=== PATIENT | female | born 1990 | race Caucasian/White ===

== ENCOUNTER 2018-12-21 11:52 | Emergency (ER) | payer OTHER ==
[2018-12-21 12:05] VITALS: BP 144/80; PULSE 68; TEMP 98; BMI 37.3
--- NOTE | 2018-12-21 12:33 | PDOC ---
History of Present Illness - General Chief Complaint: Vaginal Bleeding Stated Complaint: 8WKS/ BLEEDING WITH PAIN Time Seen by Provider: 12/21/18 12:19 History Source: Patient Exam Limitations: No Limitations - History of Present Illness Initial Comments: 12/21/18 12:34 CHIEF COMPLAINT: Vaginal bleeding HISTORY OF PRESENT ILLNESS: This is an otherwise healthy 28-year-old , LMP 4 /17 (15 wks) who presents with light vaginal bleeding, abdominal pain, back pain , and dysuria today. She reports that at her last ultrasound in November, she was told that "the baby is not growing well" and that she should return in one month for a repeat study. She had her follow up scan today, but does not have the results. Ob: Courtney Khan ([address]) Vital signs on arrival are notable for BP 144/80. REVIEW OF SYSTEMS: GENERAL/CONSTITUTIONAL: No fever or chills. No weakness. No weight change. CARDIOVASCULAR: No chest pain or palpitations. RESPIRATORY: No cough, wheezing, or shortness of breath. GASTROINTESTINAL: No nausea, vomiting, diarrhea or constipation. GENITOURINARY: See HPI. MUSCULOSKELETAL: No joint or muscle swelling or pain. No neck or back pain. SKIN: No rash or easy bruising. NEUROLOGIC: No headache, vertigo, loss of consciousness, or loss of sensation. HEMATOLOGIC/LYMPHATIC: No anemia, easy bleeding, or history of blood clots. ALLERGIC/IMMUNOLOGIC: No hives or skin allergy. No latex allergy. PHYSICAL EXAM: GENERAL: The patient is awake, alert, and fully oriented, in no acute distress. ENT: Pupils equal, round and reactive to light, extraocular movements intact, sclera anicteric, conjunctiva clear. Neck supple. LUNGS: Clear to auscultation bilaterally. Normal excursion. No respiratory distress or use of accessory muscles. CV: RRR, S1/S2, no MRG. Cap refill < 2 sec. ABDOMEN: Soft, mild diffuse tenderness without peritoneal signs, bilateral CVA tenderness, gravid uterus palpable at umbilicus. EXTREMITIES: Normal range of motion, no edema. NEUROLOGICAL: Normal speech, normal gait. CN II-XII grossly intact. PSYCH: Normal mood, normal affect. SKIN: Warm, dry, normal turgor, no rashes or lesions noted. Past History - Past Medical History Allergies/Adverse Reactions: Allergies Allergy/AdvReac Type Severity Reaction Status Date / Time No Known Allergies Allergy Verified 12/21/18 12:06 COPD: No - Suicide/Smoking/Psychosocial Hx Smoking History: Never smoked Hx Alcohol Use: No Drug/Substance Use Hx: No *Physical Exam - Vital Signs Last Vital Signs Temp Pulse Resp BP Pulse Ox 98.0 F 68 16 144/80 100 12/21/18 12:01 12/21/18 12:01 12/21/18 12:01 12/21/18 12:01 12/21/18 12:01 ED Treatment Course - LABORATORY CBC & Chemistry Diagram: 12/21/18 12:35 - RADIOLOGY Radiology Studies Ordered: Category Date Time Status TRANSVAGINAL ULTRASOUND US [US] Stat Ultrasound 12/21/18 12:23 Ordered Medical Decision Making - Medical Decision Making 12/21/18 12:38 A/P: 28-year-old female with vaginal bleeding, abd pain/back pain in second trimester. 1. Labs including CBC, bhcg, T&S, UA/culture 2. Ultrasound to assess well-being 3. Tylenol 650mg PO for pain 4. Re-assess/discuss with OB 12/21/18 13:54 Bhcg 3214 - lower than expected for gestational age 0812/21/18 14:19 Ultrasound reviewed and interpreted by radiology: There is a slightly deformed gestational sac measuring 8 weeks 3 days without cardiac activity, consistent with demise. Dr. Valera renovation plant supervisor for obstetrics paged. 12/21/18 15:[address] Valera - pt may follow up at [address] Monday for further evaluation. Results and plan reviewed with patient using [employer] moose hunter [id number]. Return precautions reviewed. *DC/Admit/Observation/Transfer Diagnosis at time of Disposition: demise before 20 weeks with retention of fetus - Discharge Dispostion Disposition: HOME Condition at time of disposition: Stable Decision to Admit order: No - Referrals - Patient Instructions Printed Discharge Instructions: DI for Miscarriage Additional Instructions: -Follow up at [address] on Monday (call for an appointment) -Take ibuprofen if needed for pain -Return here for heavy bleeding (more than 1 pad per hour) or any other concerning symptoms Print Language: HAITIAN - Post Discharge Activity
[2018-12-21] MEDS ORDERED: ACETAMINOPHEN 325 MG TABLET (FP) PO ONE (12:35)
[2018-12-21 12:46] LABS: BASO % 1.1 % (0-2.0); EOS % 1.3 % (0-4.5); HEMOGLOBIN 12.1 GM/dL (10.7-15.3); LYMPH % 20.1 % (8-40); MCH 28.3 pg (25.7-33.7); MCHC 33.8 g/dl (32.0-36.0); MEAN CELL VOLUME 83.8 fl (80-96); MEAN PLT VOLUME 8.8 fl (7.5-11.1); MONO % 6.8 % (3.8-10.2); NEUT % 70.7 % (42.8-82.8); PLATELET COUNT 281 K/MM3 (134-434); RBC 4.29 M/mm3 (3.60-5.2); RDW 13.9 % (11.6-15.6); WHITE BLOOD COUNT 9.4 K/mm3 (4.0-10.0)
[2018-12-21 12:53] LABS: EPI CELLS 1.2 /HPF (0-5/HPF); HYALINE CASTS 0 /lpf (0-8); PH,URINE 6.5 (5.0-8.0); URINE APPEARANCE CLEAR; URINE BILIRUBIN NEGATIVE (NEGATIVE); URINE COLOR YELLOW; URINE GLUCOSE (UA) NEGATIVE (NEGATIVE); URINE KETONE NEGATIVE (NEGATIVE); URINE LEUK ESTERASE NEGATIVE (NEGATIVE); URINE NITRITE NEGATIVE (NEGATIVE); URINE PROTEIN NEGATIVE (NEGATIVE); URINE RBC 1 /hpf (0-4); URINE UROBILINOGEN 0.2 mg/dL (0.2-1.0); URINE WBC 1 /hpf (0-5)
== END 2018-12-21 15:04 | disposition home or self-care (01) ==
LOC: JER 11:52
DX: O26.891 Other specified pregnancy related conditions, first trimester (principal); O02.1 Missed abortion; Z3A.08 8 weeks gestation of pregnancy
CPT/HCPCS: 36415; 76816-TC; 81003; 84702; 85025; 86850; 86900; 86901; 87086; 99283-25

== ENCOUNTER 2020-01-28 11:59 | Emergency (ER) | payer OTHER ==
[2020-01-28 12:03] VITALS: BP 124/73; PULSE 82; TEMP 97.7; BMI 41.0
--- NOTE | 2020-01-28 12:48 | PDOC ---
History of Present Illness <Sunita Gardner - Last Filed: 01/28/20 14:29> - General History Source: Patient Exam Limitations: No Limitations <Paola Ball - Last Filed: 01/28/20 14:41> - General Chief Complaint: Pain, Acute Stated Complaint: 16WKS/ ABD. PAIN Time Seen by Provider: 01/28/20 12:16 Past History <Sunita Gardner - Last Filed: 01/28/20 14:29> - Travel History Traveled outside of the country in the last 30 days: No Close contact w/someone who was outside of country & ill: No - Medical History COPD: No Other medical history: DENIES - Reproductive History Is Patient Now?: Yes - Immunization History Immunization Up to Date: Yes - Psycho-Social/Smoking History Smoking History: Never smoked - Substance Abuse Hx (Audit-C & DAST Scrn) How often the patient has a drink containing alcohol: Never Score: In Men: 4 or > Positive; In Women: 3 or > Positive: 0 Screen Result (Pos requires Nsg. Audit-10AR): Negative In the last yr the pt used illegal drug/Rx for NonMed reason: No Score: Yes response is considered Positive: 0 Screen Result (Positive result requires Nsg. DAST-10): Negative <Paola Ball - Last Filed: 01/28/20 14:41> - Medical History Allergies/Adverse Reactions: Allergies Allergy/AdvReac Type Severity Reaction Status Date / Time No Known Allergies Allergy Verified 01/28/20 12:00 Review of Systems - Review of Systems Able to Perform ROS?: Yes Comments:: 01/28/20 12:45 CONSTITUTIONAL: Absent: fever, chills, diaphoresis, generalized weakness, malaise, loss of appetite HEENT: Absent: rhinorrhea, nasal congestion, throat pain, throat swelling, difficulty swallowing, mouth swelling, ear pain, eye pain, visual Changes CARDIOVASCULAR: Absent: chest pain, loss of consciousness, palpitations, irregular heart rate, peripheral edema RESPIRATORY: Absent: cough, shortness of breath, dyspnea with exertion, orthopnea, wheezing, stridor, hemoptysis GASTROINTESTINAL: Present: Abdominal pain Absent: abdominal distension, nausea, vomiting, diarrhea, constipation, melena, hematochezia GENITOURINARY: Present: Dysuria Absent: frequency, urgency, hesitancy, hematuria, flank pain, genital pain MUSCULOSKELETAL: Absent: myalgia, arthralgia, joint swelling SKIN: Absent: rash, itching, pallor HEMATOLOGIC/IMMUNOLOGIC: Absent: easy bleeding, easy bruising, lymphadenopathy, frequent infections ENDOCRINE: Absent: unexplained weight gain, unexplained weight loss, heat intolerance, cold intolerance NEUROLOGIC: Absent: headache, focal weakness or paresthesias, dizziness, unsteady gait, seizure, mental status changes, bladder or bowel incontinence PSYCHIATRIC: Absent: anxiety, depression, suicidal or homicidal ideation, hallucinations. Is the patient limited Korean proficient: No <Paola Ball - Last Filed: 01/28/20 14:41> *Physical Exam - Vital Signs Last Vital Signs Temp Pulse Resp BP Pulse Ox 97.7 F 82 19 124/73 100 01/28/20 12:01 01/28/20 12:01 01/28/20 12:01 01/28/20 12:01 01/28/20 12:01 <GardnerSunita Gardnerisabelrosa isela - Last Filed: 01/28/20 14:29> - Vital Signs Last Vital Signs Temp Pulse Resp BP Pulse Ox 97.7 F 82 19 124/73 100 01/28/20 12:01 01/28/20 12:01 01/28/20 12:01 01/28/20 12:01 01/28/20 12:01 - Physical Exam 01/28/20 12:46 GENERAL: Well developed, well nourished. Awake and alert. No acute distress. HEENT: Normocephalic, atraumatic. PERRLA, EOMI. No conjunctival pallor. Sclera are non- icteric. Moist mucous membranes. \ NECK: Supple. Full ROM. No lymphadenopathy. CARDIOVASCULAR: Regular rate and rhythm. Distal pulses are 2+ and symmetric. PULMONARY: No evidence of respiratory distress. Breathing comfortably on room air. ABDOMINAL: Gravid abdomen. Tenderness palpation of the suprapubic region primarily with some referred pain to the left lower and right lower quadrants. Soft. Non- distended. No rebound or guarding. No organomegaly. Normoactive bowel sounds. MUSCULOSKELETAL Normal range of motion at all joints. No bony deformities or tenderness. No CVA tenderness. EXTREMITIES: No cyanosis. No clubbing. No edema. No calf tenderness. SKIN: Warm and dry. Normal capillary refill. No rashes. No jaundice. NEUROLOGICAL: Alert, awake, appropriate. Cranial nerves 2-12 intact. No deficits to light touch and temperature in face, upper extremities and lower extremities. No motor deficits in the in face, upper extremities and lower extremities. Normoreflexic in the upper and lower extremities. Normal speech. Toes are down-going bilaterally. Gait is normal without ataxia. PSYCHIATRIC: Cooperative. Good eye contact. Appropriate mood and affect. <Paola Ball - Last Filed: 01/28/20 14:41> ED Treatment Course - LABORATORY CBC & Chemistry Diagram: 01/28/20 13:00 01/28/20 13:00 - ADDITIONAL ORDERS Additional order review: Laboratory Results 01/28/20 01/28/20 13:00 12:50 Sodium 139 Potassium 4.1 Chloride 106 Carbon Dioxide 24 Anion Gap 9 BUN 7.8 Creatinine 0.6 Est GFR (CKD-EPI)AfAm 140.77 Est GFR (CKD-EPI)NonAf 121.46 Random Glucose 87 Calcium 9.2 Total Bilirubin 0.3 AST 18 ALT 23 Alkaline Phosphatase 53 Total Protein 7.0 Albumin 3.1 L Urine Color Yellow Urine Appearance Clear Urine pH 6.0 Ur Specific Lares 1.024 Urine Protein Negative Urine Glucose (UA) Negative Urine Ketones Negative Urine Blood Negative Urine Nitrite Negative Urine Bilirubin Negative Urine Urobilinogen 0.2 Ur Leukocyte Esterase Negative 01/28/20 13:00 RBC 4.11 MCV 84.4 MCHC 33.4 RDW 14.0 MPV 9.5 Neutrophils % 69.6 Lymphocytes % 21.0 Monocytes % 7.3 Eosinophils % 1.2 Basophils % 0.9 <Sunita Gardner - Last Filed: 01/28/20 14:29> - LABORATORY CBC & Chemistry Diagram: 01/28/20 13:00 01/28/20 13:00 <Paola Ball - Last Filed: 01/28/20 14:41> Medical Decision Making - Medical Decision Making The patient was seen and evaluated in conjunction with midlevel provider under my direct supervision, ancillary studies were reviewed. I agree with the plan as outlined LOUISE Ball. HPI, workup/dispo as outlined. VS reviewed, wnl. live iup with fhr 141 bpm as documented on beside sono UA negative for blood/infection anticipate discharge, pcp followup, return precautions 01/28/20 14:29 <Sunita Gardner - Last Filed: 01/28/20 14:29> - Medical Decision Making 01/28/20 12:47 Patient is a 29-year-old female G3, P1, currently 16 weeks , presents to the ER for abdominal pain since last night. She states that the abdomen is mostly tender in the lower region over her bladder. She states she does have some dysuria and it sanchez when she pees. Denies vaginal bleeding or discharge from the vagina. Denies fevers, chills, back pain, nausea and vomiting. A/P: Lower abdominal pain On exam patient is tender to the suprapubic region with referred pain to the left lower and right lower quadrants. No CVA tenderness. Will obtain basic labs, urine and a ultrasound Differential diagnosis includes but is not limited to UTI, [place], round ligament pain, gastroenteritis 01/28/20 14:37 Dr. Gardner performed bedside ultrasound, heart rate 141. See rest of ultrasound report. Like likely round ligament pain. UA, blood work all negative at this time. Recommend Tylenol as needed for pain and POULTRY BARN MANAGER follow-up. I discussed the physical exam findings, ancillary test results and final diagnoses with the patient. I answered all of the patient's questions. The patient was satisfied with the care received and felt comfortable with the discharge plan and treatment plan. The Patient agrees to follow up with the primary care physician/specialist within 24-72 hours. Return precautions were given. <Paola Ball - Last Filed: 01/28/20 14:41> Discharge - Discharge Information Problems reviewed: Yes <Sunita Gardner - Last Filed: 01/28/20 14:29> - Discharge Information Problems reviewed: Yes - Admission No <Paola Ball - Last Filed: 01/28/20 14:41> - Discharge Information Clinical Impression/Diagnosis: Abdominal pain affecting Condition: Stable Disposition: HOME - Follow up/Referral Referrals: Clementina Brunner MD [Primary Care Provider] - - Patient Discharge Instructions Patient Printed Discharge Instructions: DI for Abdominal Pain -- Early Additional Instructions: You were seen for your abdominal pain today Your ultrasound showed that the baby was moving in the heart rate of 141 bpm. Your blood work and urine were negative for infection. It is likely you are having round ligament pain or pain in your lower abdomen due to the growing of the baby. You may take Tylenol 650 mg every 4 hours as needed for pain. Please follow-up with your POULTRY BARN MANAGER this week for further management of your symptoms. Return to the ER for worsening abdominal pain, vaginal discharge, vaginal bleeding, fever or if you have any change in your symptoms. Hoy te vieron por tu dolor abdominal Wetzel ecografa mostr que el beb se mova con nakul frecuencia cardaca de 141 lpm. Wetzel anlisis de cassius y orina fueron negativos para infeccin. Es probable que tenga dolor en el ligamento renetta o dolor en la parte inferior del abdomen debido al crecimiento del beb. Puede maxwell Tylenol 650 mg cada 4 horas segn sea necesario para el dolor. Trent un seguimiento con wetzel gineclogo esta semana para un mayor control de miguelangel sntomas. Regrese a la akila de emergencias si el dolor abdominal empeora, el flujo vaginal, el sangrado vaginal, la fiebre o si tiene algn cambio en miguelangel sntomas. Print Language: MACEDONIAN - Post Discharge Activity
[2020-01-28 13:07] LABS: URINE APPEARANCE CLEAR; URINE BILIRUBIN NEGATIVE (NEGATIVE); URINE COLOR YELLOW; URINE GLUCOSE (UA) NEGATIVE (NEGATIVE); URINE KETONE NEGATIVE (NEGATIVE); URINE LEUK ESTERASE NEGATIVE (NEGATIVE); URINE NITRITE NEGATIVE (NEGATIVE); URINE PROTEIN NEGATIVE (NEGATIVE); URINE UROBILINOGEN 0.2 mg/dL (0.2-1.0)
[2020-01-28 13:25] LABS: BASO % 0.9 % (0-2.0); EOS % 1.2 % (0-4.5); HEMATOCRIT 34.7 % (32.4-45.2); HEMOGLOBIN 11.6 GM/dL (10.7-15.3); MCH 28.2 pg (25.7-33.7); MCHC 33.4 g/dl (32.0-36.0); MEAN CELL VOLUME 84.4 fl (80-96); MEAN PLT VOLUME 9.5 fl (7.5-11.1); MONO % 7.3 % (3.8-10.2); NEUT % 69.6 % (42.8-82.8); PLATELET COUNT 249 K/MM3 (134-434); RBC 4.11 M/mm3 (3.60-5.2)
[2020-01-28 13:47] LABS: ALBUMIN 3.1 g/dl (3.4-5.0); BILIRUBIN,TOTAL 0.3 mg/dL (0.2-1); BLOOD UREA NITROGEN 7.8 mg/dL (7-18); CALCIUM 9.2 mg/dL (8.5-10.1); CREATININE 0.6 mg/dL (0.55-1.3); POTASSIUM 4.1 mmol/L (3.5-5.1)
== END 2020-01-28 14:52 | disposition home or self-care (01) ==
LOC: JER 11:59
DX: O26.892 Other specified pregnancy related conditions, second trimester (principal)
CPT/HCPCS: 36415; 76815; 80053; 81003; 85025; 87086; 99283-25

== ENCOUNTER 2020-05-18 10:50 | Emergency (ER) | payer OTHER ==
[2020-05-18 10:59] VITALS: BMI 45.5
[2020-05-18] MEDS ORDERED: ACETAMINOPHEN 500 MG TABLET (FP) PO ONE (12:16)
[2020-05-18] MEDS ORDERED: ACETAMINOPHEN 500 MG TABLET (FP) ONE (12:17)
[2020-05-18 12:53] VITALS: TEMP 97.3
[2020-05-18 13:33] VITALS: BP 135/86; PULSE 84
[2020-05-25 08:24] LABS: POC NITRAZINE NEG
== END 2020-05-18 13:45 | disposition home or self-care (01) ==
LOC: JER 10:50
DX: O26.893 Other specified pregnancy related conditions, third trimester (principal); Z3A.33 33 weeks gestation of pregnancy
CPT/HCPCS: 82962; 83986-QW; 99283-25

== ENCOUNTER 2020-05-19 15:57 | Emergency (ER) | payer OTHER ==
[2020-05-19 16:05] VITALS: BP 117/70; PULSE 89; TEMP 99; BMI 46.0
[2020-05-19] MEDS ORDERED: ACETAMINOPHEN 500 MG TABLET (FP) PO ONE (17:11)
[2020-05-19] MEDS ORDERED: ACETAMINOPHEN 325 MG TABLET (FP) ONE (17:19)
[2020-05-19] MEDS ORDERED: ACETAMINOPHEN 500 MG TABLET (FP) ONE (17:37)
== END 2020-05-19 18:17 | disposition home or self-care (01) ==
LOC: JER 15:57
DX: O26.813 Pregnancy related exhaustion and fatigue, third trimester (principal)
CPT/HCPCS: 99284-25

== ENCOUNTER 2020-07-01 13:10 | Inpatient (IN) | payer OTHER ==
[2020-07-01] MEDS ORDERED: ELECTROLYTE-148 SOLN 500 ML IV ONE (13:24)
[2020-07-01] MEDS ORDERED: CITRIC ACID/SODIUM CITRATE 30 ML UNIT-DOSE CUP PO ONE (13:25)
[2020-07-01] MEDS ORDERED: ELECTROLYTE-148 SOLN 1,000 ML IV SCH (13:30)
[2020-07-01 14:07] LABS: BASO % 0.3 % (0-2.0); EOS % 0.4 % (0-4.5); HEMATOCRIT 36.7 % (32.4-45.2); HEMOGLOBIN 12.3 GM/dL (10.7-15.3); LYMPH % 18.2 % (8-40); MCH 27.1 pg (25.7-33.7); MCHC 33.5 g/dl (32.0-36.0); MEAN CELL VOLUME 80.9 fl (80-96); MEAN PLT VOLUME 9.9 fl (7.5-11.1); MONO % 6.7 % (3.8-10.2); NEUT % 74.4 % (42.8-82.8); PLATELET COUNT 206 K/MM3 (134-434); RBC 4.53 M/mm3 (3.60-5.2); RDW 15.7 % (11.6-15.6); WHITE BLOOD COUNT 8.6 K/mm3 (4.0-10.0)
[2020-07-01] MEDS ORDERED: morphine SULFATE/PF 0.5 MG/ML (2cc Syringe - QUVA) ONE ×2 (14:14→16:55)
[2020-07-01] MEDS ORDERED: ePHEDrine SULFATE 50 MG/1 ML AMPULE ONE (14:14)
[2020-07-01] MEDS ORDERED: SUCCINYLCHOLINE CHLORIDE 200 MG/10 ML SYRINGE ONE (14:18)
[2020-07-01] MEDS ORDERED: PROPOFOL 20 ML ONE (14:18)
[2020-07-01 14:26] LABS: POTASSIUM 4.3 mmol/L (3.5-5.1); PROTHROMBIN TIME (PATIENT) 12.3 SEC (9.7-13.0)
[2020-07-01 14:29] LABS: ACTIVATED PTT 26.9 SECONDS (25.2-36.5); ALBUMIN 2.6 g/dl (3.4-5.0); BLOOD UREA NITROGEN 14.4 mg/dL (7-18)
[2020-07-01 14:31] LABS: CREATININE 0.7 mg/dL (0.55-1.3)
[2020-07-01 14:33] LABS: BILIRUBIN,TOTAL 0.3 mg/dL (0.2-1); TOT PROT 6.5 g/dl (6.4-8.2)
[2020-07-01 15:20] VITALS: BMI 48.2
[2020-07-01] MEDS ORDERED: OXYTOCIN 20 UNITS in 0.9% NS 20 UNIT/1,000 ML INFUS.BAG IV ONE ×2 (16:56→18:03)
[2020-07-01] MEDS ORDERED: ONDANSETRON 4 MG/2 ML VIAL IVPUSH PRN (17:22)
[2020-07-01] MEDS ORDERED: METHYLERGONOVINE MALEATE 0.2 MG/1 ML AMP IM PRN (17:55)
[2020-07-01] MEDS ORDERED: SENNOSIDES/DOCUSATE COMBO (SENNA PLUS) TABLET (UD) PO PRN (17:55)
[2020-07-01] MEDS ORDERED: IBUPROFEN 800 MG/8 ML IJ IVPB PRN (17:55)
[2020-07-01] MEDS ORDERED: oxyCODONE HCL 5 MG TABLET PO PRN (17:55)
[2020-07-01] MEDS ORDERED: OXYTOCIN 20 UNITS in 0.9% NS 20 UNIT/1,000 ML INFUS.BAG IV SCH (18:00)
[2020-07-01] MEDS: FERROUS SO4 325 MG TABLET (FP) PO SCH (22:00)
[2020-07-02] MEDS: ACETAMINOPHEN 325 MG TABLET (FP) PO PRN ×3 (09:05→17:15)
[2020-07-02] MEDS: SIMETHICONE 80 MG TAB.CHEW (FP) PO PRN ×3 (09:08→17:16)
[2020-07-02 09:26] LABS: BASO % 0.4 % (0-2.0); EOS % 0.1 % (0-4.5); HEMATOCRIT 29.5 % (32.4-45.2); LYMPH % 20.6 % (8-40); MCH 27.8 pg (25.7-33.7); MCHC 33.9 g/dl (32.0-36.0); MEAN CELL VOLUME 81.9 fl (80-96); MEAN PLT VOLUME 9.7 fl (7.5-11.1); MONO % 8.3 % (3.8-10.2); NEUT % 70.6 % (42.8-82.8); PLATELET COUNT 181 K/MM3 (134-434); RDW 15.7 % (11.6-15.6); WHITE BLOOD COUNT 8.8 K/mm3 (4.0-10.0)
[2020-07-02] MEDS: FERROUS SO4 325 MG TABLET (FP) PO SCH ×2 (09:49→22:29)
[2020-07-02] MEDS: PRENATAL VITAMINS W/ FOLIC ACID TABLET (FP) PO SCH (09:49)
[2020-07-02] MEDS: IBUPROFEN 600 MG TABLET (FP) PO PRN ×2 (12:42→17:16)
[2020-07-02] MEDS ORDERED: BISACODYL 10 MG SUPP.RECT RC PRN (17:55)
[2020-07-03] MEDS: SIMETHICONE 80 MG TAB.CHEW (FP) PO PRN (08:28)
[2020-07-03] MEDS: IBUPROFEN 600 MG TABLET (FP) PO PRN ×2 (08:28→20:30)
[2020-07-03] MEDS: ACETAMINOPHEN 325 MG TABLET (FP) PO PRN ×2 (08:29→20:30)
[2020-07-03] MEDS: FERROUS SO4 325 MG TABLET (FP) PO SCH ×2 (11:27→23:02)
[2020-07-03] MEDS: PRENATAL VITAMINS W/ FOLIC ACID TABLET (FP) PO SCH (11:27)
[2020-07-04] MEDS: ACETAMINOPHEN 325 MG TABLET (FP) PO PRN (08:16)
[2020-07-04 08:39] VITALS: TEMP 98.2
[2020-07-04 08:40] VITALS: BP 132/83; PULSE 74
[2020-07-04 09:32] LABS: BASO % 0.7 % (0-2.0); EOS % 2.6 % (0-4.5); HEMATOCRIT 32.9 % (32.4-45.2); LYMPH % 19.4 % (8-40); MCH 27.6 pg (25.7-33.7); MCHC 33.3 g/dl (32.0-36.0); MEAN CELL VOLUME 82.9 fl (80-96); MEAN PLT VOLUME 9.1 fl (7.5-11.1); MONO % 6.1 % (3.8-10.2); NEUT % 71.2 % (42.8-82.8); PLATELET COUNT 243 K/MM3 (134-434); RBC 3.98 M/mm3 (3.60-5.2); RDW 16.2 % (11.6-15.6); WHITE BLOOD COUNT 8.7 K/mm3 (4.0-10.0)
[2020-07-04] MEDS: PRENATAL VITAMINS W/ FOLIC ACID TABLET (FP) PO SCH (10:45)
[2020-07-04] MEDS: FERROUS SO4 325 MG TABLET (FP) PO SCH (10:45)
== END 2020-07-04 14:10 | disposition home or self-care (01) | DRG 540 ==
LOC: JLDR 13:10 → J3W 20:15
PROVIDERS: ADMIT Obstetrics & Gynecology; ATTEND Obstetrics & Gynecology
PROC: 10D00Z1 Extraction of Products of Conception, Low, Open Approach (ICD-10-PCS; principal; 2020-07-01)
DX: O24.424 Gestational diabetes mellitus in childbirth, insulin controlled (principal); O99.284 Endocrine, nutritional and metabolic diseases complicating childbirth; E03.9 Hypothyroidism, unspecified; O99.214 Obesity complicating childbirth; E66.01 Morbid (severe) obesity due to excess calories; G51.0 Bell's palsy; Z3A.38 38 weeks gestation of pregnancy; Z37.0 Single live birth
CPT/HCPCS: 36415; 80053; 85025; 85610; 85730; 86780; 86850; 86900; 86901; 88307-TC

== ENCOUNTER 2021-09-30 13:40 | Emergency (ER) | payer OTHER ==
[2021-09-30 14:21] VITALS: BP 134/74; PULSE 71; TEMP 97.9; BMI 41.3
[2021-09-30 16:34] LABS: HCG,QUALITATIVE URINE Positive
[2021-09-30 16:39] LABS: EPI CELLS 24 /uL (0-25.1); HYALINE CASTS 0 /uL (0-3.1); URINE APPEARANCE CLEAR; URINE BACTERIA 210 /uL (0-1359); URINE BILIRUBIN NEGATIVE (NEGATIVE); URINE COLOR YELLOW; URINE GLUCOSE (UA) TRACE (NEGATIVE); URINE KETONE NEGATIVE (NEGATIVE); URINE LEUK ESTERASE TRACE (NEGATIVE); URINE NITRITE NEGATIVE (NEGATIVE); URINE PROTEIN NEGATIVE (NEGATIVE); URINE UROBILINOGEN 0.2 mg/dL (0.2-1.0); URINE WBC 48 /uL (0-25.8)
[2021-09-30 17:03] LABS: URINE RBC 17.9 /uL (0-23.9)
[2021-09-30 18:01] LABS: BASO % 0.5 % (0-2.0); EOS % 1.4 % (0-4.5); HEMATOCRIT 39.6 % (32.4-45.2); HEMOGLOBIN 13.2 GM/dL (10.7-15.3); LYMPH % 34.3 % (8-40); MCH 27.7 pg (25.7-33.7); MCHC 33.3 g/dl (32.0-36.0); MEAN CELL VOLUME 83.2 fl (80-96); MEAN PLT VOLUME 9.3 fl (7.5-11.1); MONO % 6.9 % (3.8-10.2); NEUT % 56.9 % (42.8-82.8); PLATELET COUNT 320 10^3/uL (134-434); RBC 4.76 M/mm3 (3.60-5.2); RDW 13.2 % (11.6-15.6); WHITE BLOOD COUNT 8.6 K/mm3 (4.0-10.0)
[2021-09-30 18:18] LABS: ALBUMIN 3.8 g/dl (3.4-5.0); BLOOD UREA NITROGEN 9.1 mg/dL (7-18); CALCIUM 9.7 mg/dL (8.5-10.1)
[2021-09-30 18:21] LABS: CREATININE 0.7 mg/dL (0.55-1.3)
[2021-09-30 18:23] LABS: BILIRUBIN,TOTAL 0.3 mg/dL (0.2-1); TOT PROT 7.7 g/dl (6.4-8.2)
== END 2021-09-30 19:50 | disposition home or self-care (01) ==
LOC: JER 13:40
DX: O23.91 Unspecified genitourinary tract infection in pregnancy, first trimester (principal); O26.851 Spotting complicating pregnancy, first trimester; Z3A.01 Less than 8 weeks gestation of pregnancy
CPT/HCPCS: 36415; 76817-TC; 80053; 81003; 84702; 84703; 85025; 86850; 86900; 86901; 87077; 87086; 99284-25

== ENCOUNTER 2021-10-01 19:49 | Emergency (ER) | payer OTHER ==
[2021-10-01 20:01] VITALS: BMI 28.7
[2021-10-01] MEDS ORDERED: ACETAMINOPHEN 1000 MG/100 ML BAG IVPB ONE (20:51)
[2021-10-01] MEDS ORDERED: SODIUM CHLORIDE 0.9% 500 ML INFUS.BAG IV ONE (20:51)
[2021-10-01] MEDS ORDERED: ACETAMINOPHEN INJECTION 100 ML IVPB ONE (20:54)
[2021-10-01 21:05] LABS: BASO % 1.1 % (0-2.0); EOS % 1.8 % (0-4.5); HEMATOCRIT 36.7 % (32.4-45.2); HEMOGLOBIN 12.5 GM/dL (10.7-15.3); LYMPH % 31.5 % (8-40); MCH 28.2 pg (25.7-33.7); MCHC 34.1 g/dl (32.0-36.0); MEAN CELL VOLUME 82.6 fl (80-96); MEAN PLT VOLUME 8.9 fl (7.5-11.1); MONO % 6.8 % (3.8-10.2); NEUT % 58.8 % (42.8-82.8); PLATELET COUNT 311 10^3/uL (134-434); RBC 4.44 M/mm3 (3.60-5.2); RDW 13.1 % (11.6-15.6); WHITE BLOOD COUNT 8.8 K/mm3 (4.0-10.0)
[2021-10-01 21:25] LABS: CALCIUM 8.8 mg/dL (8.5-10.1)
[2021-10-01 21:26] LABS: ALBUMIN 3.6 g/dl (3.4-5.0); BLOOD UREA NITROGEN 12.3 mg/dL (7-18)
[2021-10-01 21:29] LABS: CREATININE 0.8 mg/dL (0.55-1.3)
[2021-10-01 21:31] LABS: BILIRUBIN,TOTAL 0.2 mg/dL (0.2-1); TOT PROT 7.2 g/dl (6.4-8.2)
[2021-10-01 23:44] VITALS: BP 137/82; PULSE 89; TEMP 97.9
[2021-10-02] MEDS ORDERED: MISOPROSTOL 200 MCG TABLET PO ONE ×2 (01:13→01:55)
[2021-10-02] MEDS ORDERED: MISOPROSTOL 200 MCG TABLET PO SCH ×2 (01:46→08:00)
== END 2021-10-02 02:13 | disposition home or self-care (01) ==
LOC: JER 19:49
PROC: 3E033GC Introduction of Other Therapeutic Substance into Peripheral Vein, Percutaneous Approach (ICD-10-PCS; principal; 2021-10-01)
DX: O36.4XX0 Maternal care for intrauterine death, not applicable or unspecified (principal); Z3A.01 Less than 8 weeks gestation of pregnancy
CPT/HCPCS: 36415; 76817-TC; 80053; 84702; 85025; 86850; 86900; 86901; 99282-25

== ENCOUNTER 2022-04-27 15:44 | Emergency (ER) | payer OTHER ==
[2022-04-27 16:00] VITALS: BMI 32.8
[2022-04-27] MEDS ORDERED: SODIUM CHLORIDE 0.9% 1000 ML INFUS.BAG IV ONE (17:08)
[2022-04-27] MEDS ORDERED: METOCLOPRAMIDE HCL INJECTION 10 MG/2 ML VIAL IVPUSH ONE (17:08)
[2022-04-27] MEDS ORDERED: ACETAMINOPHEN 325 MG TABLET (FP) PO ONE (17:11)
[2022-04-27] MEDS ORDERED: METOCLOPRAMIDE HCL INJECTION 10 MG/2 ML VIAL ONE (17:42)
[2022-04-27] MEDS ORDERED: ACETAMINOPHEN 325 MG TABLET (FP) ONE (17:42)
[2022-04-27 18:16] LABS: BASO % 0.4 % (0-2.0); EOS % 1.5 % (0-4.5); HEMATOCRIT 40.1 % (32.4-45.2); LYMPH % 26.9 % (8-40); MCH 27.4 pg (25.7-33.7); MCHC 32.5 g/dl (32.0-36.0); MEAN CELL VOLUME 84.4 fl (80-96); MEAN PLT VOLUME 8.7 fl (7.5-11.1); MONO % 6.9 % (3.8-10.2); NEUT % 64.3 % (42.8-82.8); PLATELET COUNT 386 10^3/uL (134-434); RBC 4.75 M/mm3 (3.60-5.2); RDW 13.7 % (11.6-15.6); WHITE BLOOD COUNT 9.2 K/mm3 (4.0-10.0)
[2022-04-27 18:38] LABS: EPI CELLS 36 /uL (0-25.1); HYALINE CASTS 1 /uL (0-3.1); PH,URINE 5.5 (5.0-8.0); URINE APPEARANCE CLEAR; URINE BACTERIA 106 /uL (0-1359); URINE BILIRUBIN NEGATIVE (NEGATIVE); URINE COLOR YELLOW; URINE GLUCOSE (UA) NEGATIVE (NEGATIVE); URINE KETONE NEGATIVE (NEGATIVE); URINE LEUK ESTERASE TRACE (NEGATIVE); URINE NITRITE NEGATIVE (NEGATIVE); URINE PROTEIN TRACE (NEGATIVE); URINE RBC 143 /uL (0-23.9); URINE UROBILINOGEN 0.2 mg/dL (0.2-1.0); URINE WBC 16 /uL (0-25.8)
[2022-04-27 18:39] LABS: CALCIUM 9.6 mg/dL (8.5-10.1)
[2022-04-27 18:43] LABS: CREATININE 0.8 mg/dL (0.55-1.3)
[2022-04-27 18:44] LABS: BILIRUBIN,TOTAL 0.2 mg/dL (0.2-1); TOT PROT 8.4 g/dl (6.4-8.2)
[2022-04-27 19:05] LABS: HCG,QUALITATIVE URINE NEGATIVE
[2022-04-27 19:50] VITALS: BP 136/86; PULSE 86; RESP 19; TEMP 98.6
== END 2022-04-27 19:50 | disposition home or self-care (01) ==
LOC: JER 15:44
PROC: 3E033GC Introduction of Other Therapeutic Substance into Peripheral Vein, Percutaneous Approach (ICD-10-PCS; principal; 2022-04-27)
DX: R51.9 Headache, unspecified (principal)
CPT/HCPCS: 0241U-QW; 36415; 80053; 81003; 84703; 85025; 99284-25